=== PATIENT | female | born 1985 | race Caucasian/White ===

== ENCOUNTER 2016-04-07 09:27 | Emergency (ER) | payer OTHER ==
[~2016-04-07] VITALS: Wt 126.0 kg
[~2016-04-07 09:27] MED LIST: AMO500 PO; CLIN-73 PO; ERYTOPOI RIGHT EYE; HYDR-3498 PO; HYDR-906 PO; IBUP-1542 PO; IBUP400T22 PO; IBUP800T25 PO; NO MEDS
[2016-04-07] MEDS ORDERED: KETOROLAC 30 MG INJ IM STA (10:34)
[2016-04-07] MEDS ORDERED: IBUP-1542 PO (10:55)
--- NOTE | 2016-04-07 13:16 | ERD ---
ER Documentation Chief Complaint Date/Time DATE: 04/07/16 TIME: 13:12 Chief Complaint LOW BACK PAIN RADIATING R LEG PAIN FOR 4 DAYS. NO TRAUMA . HPI The patient is a 30-year-old morbidly obese female with chronic low back pain for 4-5 years, with several acute flareups per year. She comes today complaining of an acute flareup of her usual low back pain, for the last 3 days. She denies fever, chills, nausea, vomiting, diarrhea. She denies any recent injury, accident, trauma, or fall. She denies any original injury that precipitated her low back pain to begin with. She has been seen and managed for chronic low back pain on an outpatient basis. She states that she received an MRI one year ago which was "normal". She states that she occasionally has some pain shooting down her left leg. She denies saddle paresthesia, bladder or bowel dysfunction, or limb numbness or weakness. She took some ibuprofen yesterday with some relief. She states that she tried physical therapy in 2013 without relief. She has used heat at home with some relief. ROS All systems reviewed and are negative except as per history of present illness. Medications Home Meds Active Scripts Ibuprofen* (Motrin*) 600 Mg Tab, 600 MG PO Q8, #30 TAB Prov:NICK LOVE, DIRECTOR EMPLOYEE [employer] HE[employer] 04/07/16 Erythromycin* (Erythromycin* Ophthalmic) 1 Applic Oint, 1 APPLIC RIGHT EYE QID for 7 Days Prov:ALEX HIDALGO PA-C 01/06/16 Clindamycin Hcl* (Clindamycin Hcl*) 300 Mg Capsule, 450 MG PO TID for 10 Days, CAP Prov:ALEX HIDALGO PA-C 01/06/16 Ibuprofen* (Motrin*) 800 Mg Tab, 800 MG PO Q6, #30 TAB Prov:ALEX HIDALGO PA-C 01/06/16 Hydrocodone/Acetaminophen ([place] 5-325 Tablet) 1 Each Tablet, 1 TAB PO Q6H Y for PAIN, #10 TAB Prov:ALEX HIDALGO PA-C 01/06/16 Ibuprofen* (Motrin*) 600 Mg Tab, 600 MG PO Q6H Y for PAIN AND OR ELEVATED TEMP, #30 TAB Prov:RUEL WEST 06/29/15 Hydrocodone Bit-Acetaminophen* ([place]*) 5-325 Mg Tab, 1 TAB PO Q6 Y for PAIN, # 7 TAB Prov:RUEL WEST 06/29/15 Ibuprofen* (Motrin*) 400 Mg Tab, 400 MG PO Q6, #20 TAB Prov:BRAYDEN GARCIA 09/17/14 Amoxicillin* (Amoxicillin*) 500 Mg Cap, 500 MG PO TID for 7 Days, CAP Prov:EMIGDIOKayleighLEONARDABRAYDEN 09/17/14 Reported Medications [No Meds] No Conflict Check 01/15/13 Allergies Allergies: Coded Allergies: No Known Allergy (Verified , 01/15/13) PMhx/Soc History of Surgery: Yes () Anesthesia Reaction: No Hx Neurological Disorder: No Hx Respiratory Disorders: No Hx Cardiac Disorders: No Hx Psychiatric Problems: No Hx Miscellaneous Medical Probl: Yes (gallbladder removed) Hx Alcohol Use: No Hx Substance Use: No Hx Tobacco Use: No Physical Exam Vitals Vital Signs Date Time Temp Pulse Resp B/P Pulse Ox O2 Delivery O2 Flow Rate FiO2 04/07/16 09:29 98.5 92 21 137/84 99 Physical Exam INITIAL VITAL SIGNS: Reviewed by me, afebrile, no tachycardia GENERAL: Alert. Well developed and well nourished. No respiratory distress. Nontoxic in appearance. No acute distress. HEAD: Head is normocephalic. Atraumatic. EYES: EOMI. No scleral icterus. No conjunctival injection. ENT: External ears, nose, and mouth normal. Nasal passages patent. Moist mucous membranes. NECK: Supple. Full range of motion. Trachea midline. No bony or myofascial tenderness to palpation. No step-off. No external signs of trauma. RESPIRATORY: No tachypnea. Clear to auscultation bilaterally. No wheezing, rales , or rhonchi. CV: Regular rate and rhythm. No murmurs, rubs, or gallops ABDOMEN: Soft, rounded/obese, non-tender. No guarding. No rebound. No masses. Bowel sounds normal in all quadrants. BACK: No external signs of trauma. No redness or swelling. No CVA tenderness. No bony tenderness to palpation. No step-off. + Myofascial tenderness to palpation right side lower back paraspinal muscles. Negative straight leg raise. Range of motion limited secondary to pain in flexion, lateral bending, and rotation. Range of motion normal in extension and nonpainful. EXTREMITIES: Sensation intact to light touch bilateral lower extremities. Strength 5/5 bilateral lower extremities. Full range of motion bilateral lower extremities. No obvious deformity. No clubbing or cyanosis. No edema. SKIN: Warm and dry. No diaphoresis. No obvious rashes or lesions. NEUROLOGIC: Alert and oriented x 3. Appropriate. Face is symmetric. Speech is normal. Moves all extremities equally. Gait is slow and guarded, however patient ambulates easily and without a limp. Results 24 hrs Current Medications Medications (Trade) Dose Ordered Sig/Ilsa Route PRN Reason Start Time Stop Time Status Last Admin Dose Admin Ketorolac Tromethamine (Toradol) 30 mg ONCE STAT IM 04/07/16 10:34 04/07/16 10:39 DC 04/07/16 10:42 Procedures/MDM Nursing Notes Reviewed Previous Medical Records requested via [facility]. EMERGENCY DEPARTMENT COURSE / MEDICAL DECISION MAKING: The patient comes to the ED secondary to acute on chronic low back pain for the last several years. This acute flare-up has lasted 3 days. Differential diagnosis upon initial evaluation includes but is not limited to: Fracture, dislocation, cauda equina, epidural abscess, cord compression, musculoskeletal pain, discogenic pain, and others. The patient was treated with Toradol 30 mg IM with moderate relief. The patient' s repeat physical exam was benign. She was ambulatory with a slow, but steady gait without a limp. She denied any previous or recent injury, accident, trauma , or fall. She denied any fever, chills, or flulike symptoms. He denied saddle paresthesia, change in bladder or bowel function or habits, or lower extremity numbness or weakness. As such, I have low suspicion at this time for fracture, dislocation, cauda equina, epidural abscess, cord compression, discogenic pain, or any other serious cause of the patient's acute on chronic low back pain. Final impression: Acute exacerbation of chronic low back pain Based on patient's history of present illness and physical examination the decision was made to discharge. The patient was re-evaluated after ED treatment and stabilizing measures, and symptoms have improved. There is no evidence of life threatening injuries or illnesses at this time. On re-examination, patient resting in no distress, stable vital signs, reports feeling better and safe for discharge with outpatient follow up with PMD in 2-3 days. Patient given return precautions. She verbalized understanding and agreed to return precautions. She will return here immediately for any new or worsening symptoms. I instructed her on the importance of weight loss, gentle and regular physical activity, and physical therapy for amelioration of low back pain. The patient verbalized understanding and agreed. All of her questions and concerns were addressed prior to discharge. She agrees to follow- up with her primary care provider as directed. Patient's blood pressure was elevated but appears stable without evidence of hypertensive emergency, end organ damage, chest pain or shortness of breath. The patient was counseled about the risks of untreated hypertension and urged to pursue outpatient monitoring and therapy in 2-3 days with their primary care physician. Prescription Ibuprofen Departure Diagnosis: Primary Impression: Acute exacerbation of chronic low back pain Condition: Stable Patient Instructions: Self-Care for Low Back Pain Additional Instructions: Call your primary care doctor TOMORROW for an appointment during the next 2-3 days.See the doctor sooner or return here if your condition worsens before your appointment time. NICK LOVE NP Apr 07, 2016 13:16
== END 2016-04-07 11:13 | disposition home or self-care (01) ==
LOC: FTE 09:27
DX: M54.5 Low back pain (principal)
CPT/HCPCS: 96372; J1885; Z7502

== ENCOUNTER 2017-06-13 13:29 | Emergency (ER) | END 2017-06-13 15:05 | disposition home or self-care (01) ==

== ENCOUNTER 2017-08-08 19:24 | Emergency (ER) | END 2017-08-08 23:08 | disposition home or self-care (01) ==

== ENCOUNTER 2018-02-11 16:18 | Emergency (ER) | payer OTHER ==
[~2018-02-11] VITALS: Ht 167.6 cm; Wt 129.6 kg
[~2018-02-11 16:18] MED LIST changes: -AMO500 PO; +AMOX500C2 PO; -CLIN-73 PO; +CLIN300C10 PO; +HYDR-4011 PO; -HYDR-906 PO; +IBUP-1561 PO; -IBUP400T22 PO; -IBUP800T25 PO; +IBUP800T48 PO
[2018-02-11 16:21] VITALS: Ht 167.6 cm; Wt 129.6 kg
[2018-02-11] MEDS ORDERED: HYDROCODONE/APAP (5/325) TAB PO ONE (19:00)
[2018-02-11] MEDS ORDERED: IBUP800T48 PO (19:48)
--- NOTE | 2018-02-11 19:53 | ERD ---
ER Documentation Chief Complaint Chief Complaint Complains of right ankle pain since this HPI 32-year-old female presents with right foot and ankle pain after she twisted it while coming down the stairs today. She tripped on a banana peel. No head injury or KO. No other injury or pain. She try to take anti-inflammatory at home but it did not help. No numbness or tingling. ROS All systems reviewed and are negative except as per history of present illness. Medications Home Meds Active Scripts Ibuprofen* (Motrin*) 800 Mg Tab, 800 MG PO Q6, #30 TAB Prov:LYLE HUSTON PA-C 02/11/18 Ibuprofen* (Motrin*) 600 Mg Tab, 600 MG PO Q6, #30 TAB Prov:HERRERA ASTUDILLO 08/08/17 Ibuprofen* (Motrin*) 600 Mg Tab, 600 MG PO Q8, #30 TAB Prov:NICK LOVE, IN[employer]CTION BRA[employer]ER 04/07/16 Erythromycin* (Erythromycin* Ophthalmic) 1 Applic Oint, 1 APPLIC RIGHT EYE QID for 7 Days Prov:ALEX HIDALGO PA-C 01/06/16 Clindamycin Hcl* (Clindamycin Hcl*) 300 Mg Capsule, 450 MG PO TID for 10 Days, CAP Prov:ALEX HIDALGO PA-C 01/06/16 Ibuprofen* (Motrin*) 800 Mg Tab, 800 MG PO Q6, #30 TAB Prov:ALEX HIDALGO PA-C 01/06/16 Hydrocodone/Acetaminophen ([place] 5-325 Tablet) 1 Each Tablet, 1 TAB PO Q6H PRN for PAIN, #10 TAB Prov:ALEX HIDALGO PA-C 01/06/16 Ibuprofen* (Motrin*) 600 Mg Tab, 600 MG PO Q6H PRN for PAIN AND OR ELEVATED TEMP, #30 TAB Prov:RUEL WEST 06/29/15 Hydrocodone Bit-Acetaminophen* ([place]*) 5-325 Mg Tab, 1 TAB PO Q6 PRN for PAIN, #7 TAB Prov:RUEL WEST 06/29/15 Ibuprofen* (Motrin*) 400 Mg Tab, 400 MG PO Q6, #20 TAB Prov:BRAYDEN GARCIA 09/17/14 Amoxicillin* (Amoxicillin*) 500 Mg Cap, 500 MG PO TID for 7 Days, CAP Prov:BRAYDEN GARCIA 09/17/14 Reported Medications [No Meds] No Conflict Check 01/15/13 Allergies Allergies: Coded Allergies: oxcarbazepine (Verified Allergy, Unknown, 02/11/18) PMhx/Soc History of Surgery: Yes () Anesthesia Reaction: No Hx Neurological Disorder: No Hx Respiratory Disorders: No Hx Cardiac Disorders: Yes (HTN) Hx Psychiatric Problems: No Hx Miscellaneous Medical Probl: Yes (gallbladder removed/ mood swings) Hx Alcohol Use: No Hx Substance Use: No Hx Tobacco Use: No Smoking Status: Never smoker FmHx Family History: No diabetes Physical Exam Vitals Vital Signs Date Temp Pulse Resp B/P (MAP) Pulse Ox O2 O2 Flow FiO2 Time Delivery Rate 02/11/18 100.0 100 20 140/91 98 16:21 (107) Physical Exam Const: No acute distress Head: Atraumatic Eyes: Normal Conjunctiva ENT: Normal External Ears, Nose and Mouth. Neck: Full range of motion. No meningismus. Resp: Clear to auscultation bilaterally Cardio: Regular rate and rhythm, no murmurs Lower Extremity -right Skin: No laceration Compartments: Soft Motor: Full active range of motion hip/knee/ankle/foot Sensation: Intact to light touch FDWS/MF/LF/P surfaces. Bones: Mild tenderness over lateral malleoli, no bony abnormalities Joints: Mild bimalleolar edema Pulses/Perfusion: 2+ DP, Capillary refill < 2 seconds Results 24 hrs Current Medications Medications Dose Sig/Ilsa Start Time Status Last (Trade) Ordered Route PRN Stop Time Admin Dose Reason Admin 1 tab ONCE ONCE 02/11/18 DC 02/11/18 Acetaminophen PO 19:00 19:08 / 02/11/18 Hydrocodone 19:02 Bitart ([place] (5/325)) Procedures/MDM Patient has foot and ankle pain after trauma. She is neurovascular intact. X- rays are negative. Adams wrap and crutches applied. Prescription for Motrin given. Patient counseled regarding my diagnostic impression and care plan. Prior to discharge all questions answered. Pt agrees with treatment plan and understands strict return precautions. Pt is [facility] within 24-48 hours. Precautionary instructions provided including instructions to return to the ER if not improving or for any worsening or changing symptoms or concerns. Departure Diagnosis: Primary Impression: Foot sprain Additional Impression: Ankle sprain Condition: Stable Patient Instructions: Self-Care for Strains and Sprains Additional Instructions: Call your primary care doctor TOMORROW for an appointment during the next 1-2 days.See the doctor sooner or return here if your condition worsens before your appointment time. LYLE HUSTON PA-C Feb 11, 2018 19:53
[2018-02-11 19:56] VITALS: BP 163/79; PULSE 72; RESP 18
== END 2018-02-11 19:55 | disposition home or self-care (01) ==
LOC: FTE 16:18
DX: S93.401A Sprain of unspecified ligament of right ankle, initial encounter (principal); I10 Essential (primary) hypertension; S93.601A Unspecified sprain of right foot, initial encounter; X58.XXXA Exposure to other specified factors, initial encounter; Y92.9 Unspecified place or not applicable
CPT/HCPCS: 73610; 73630; Z7502; Z7610

== ENCOUNTER 2018-07-18 18:58 | Emergency (ER) | payer OTHER ==
[~2018-07-18] VITALS: Ht 157.5 cm; Wt 127.9 kg
[2018-07-18 19:00] VITALS: Ht 157.5 cm; Wt 127.9 kg
[2018-07-18] MEDS ORDERED: ALBUTEROL 0.083% (NEB) 2.5 MG/3 ML AMP NEB STA (19:20)
[2018-07-18] MEDS ORDERED: IPRATROPIUM (NEB) 0.5 MG/2.5 ML AMP NEB STA (19:20)
[2018-07-18] MEDS ORDERED: DEXAMETHASONE 4 MG/ML 1 ML INJ PO ONE (19:30)
[2018-07-18] MEDS ORDERED: ACETAMINOPHEN 500 MG TAB PO STA (19:32)
--- NOTE | 2018-07-18 19:32 | ERD ---
ER Documentation Chief Complaint Chief Complaint COUGH, SOB, SINUS CONGESTION X'S 2 DAYS HPI 33-year-old female presents complaining of cough shortness of breath sinus congestion for the past 2 days. She did see primary care doctor who placed her on Augmentin which she has been taking but has not gotten any better. Also has fever. No nausea vomiting diarrhea. ROS All systems reviewed and are negative except as per history of present illness. Medications Home Meds Active Scripts Azithromycin* (Zithromax*) 250 Mg Tablet, 250 MG PO .NellPACK DIRECTED, #6 TAB TAKE 500 MG (2 TABS) THE FIRST DAY THEN 250 MG (1 TAB) DAYS 2-5 Prov:LYLE HUSTON PA-C 07/18/18 Ibuprofen* (Motrin*) 800 Mg Tab, 800 MG PO Q6, #30 TAB Prov:LYLE HUSTON PA-C 02/11/18 Ibuprofen* (Motrin*) 600 Mg Tab, 600 MG PO Q6, #30 TAB Prov:HERRERA ASTUDILLO 08/08/17 Ibuprofen* (Motrin*) 600 Mg Tab, 600 MG PO Q8, #30 TAB Prov:NICK LOVE, GAMING MANAGER 04/07/16 Erythromycin* (Erythromycin* Ophthalmic) 1 Applic Oint, 1 APPLIC RIGHT EYE QID for 7 Days Prov:ALEX HIDALGO PA-C 01/06/16 Clindamycin Hcl* (Clindamycin Hcl*) 300 Mg Capsule, 450 MG PO TID for 10 Days, CAP Prov:ALEX HIDALGO PA-C 01/06/16 Ibuprofen* (Motrin*) 800 Mg Tab, 800 MG PO Q6, #30 TAB Prov:ALEX HIDALGO PA-C 01/06/16 Hydrocodone/Acetaminophen ([place] 5-325 Tablet) 1 Each Tablet, 1 TAB PO Q6H PRN for PAIN, #10 TAB Prov:ALEX HIDALGO PA-C 01/06/16 Ibuprofen* (Motrin*) 600 Mg Tab, 600 MG PO Q6H PRN for PAIN AND OR ELEVATED TEMP, #30 TAB Prov:RUEL WEST 06/29/15 Hydrocodone Bit-Acetaminophen* ([place]*) 5-325 Mg Tab, 1 TAB PO Q6 PRN for PAIN, #7 TAB Prov:RUEL WEST 06/29/15 Ibuprofen* (Motrin*) 400 Mg Tab, 400 MG PO Q6, #20 TAB Prov:BRAYDEN GARCIA 09/17/14 Amoxicillin* (Amoxicillin*) 500 Mg Cap, 500 MG PO TID for 7 Days, CAP Prov:BRAYDEN GARCIA 09/17/14 Reported Medications [No Meds] No Conflict Check 01/15/13 Allergies Allergies: Coded Allergies: oxcarbazepine (Verified Allergy, Unknown, 07/18/18) PMhx/Soc History of Surgery: Yes () Anesthesia Reaction: No Hx Neurological Disorder: No Hx Respiratory Disorders: No Hx Cardiac Disorders: Yes (HTN) Hx Psychiatric Problems: No Hx Miscellaneous Medical Probl: Yes (gallbladder removed/ mood swings) Hx Alcohol Use: No Hx Substance Use: No Hx Tobacco Use: No Smoking Status: Never smoker FmHx Family History: No diabetes Physical Exam Vitals Vital Signs Date Temp Pulse Resp B/P (MAP) Pulse Ox O2 O2 Flow FiO2 Time Delivery Rate 07/18/18 97.7 94 17 132/86 96 Room Air 20:00 (101) 07/18/18 100.7 19:38 07/18/18 101 22 97 21 19:34 07/18/18 100.7 103 20 118/56 97 19:00 (76) Physical Exam INITIAL VITAL SIGNS: Reviewed by me GENERAL: Awake, alert and oriented x 4, well appearing, nontoxic, speaking in full sentences. No acute distress HEAD: Atraumatic NECK: Supple. No masses. Full range of motion. No meningismus. No midline tenderness. THROAT: No tonilar erythema or edema. No exudates. Uvula midline. No kissing tonsils. RESPIRATORY: Clear to auscultation bilaterally. Symmetric chest wall rise. No wheezing or rales. No accessory muscle use. CV: Regular rate and rhythm. No murmurs, rubs, or gallops. ABDOMEN: Soft, non-distended. Nontender. Negative [place]. Negative [place] point tenderness. No CVA tenderness bilaterally. No guarding. No rebound. Results 24 hrs Current Medications Medications Dose Sig/Ilsa Start Time Status Last (Trade) Ordered Route PRN Stop Time Admin Dose Reason Admin 10 mg ONCE ONCE 07/18/18 DC 07/18/18 Dexamethasone PO 19:30 6/2/19 19:29 (Decadron) 19:31 Albuterol 5 mg ONCE STAT 07/18/18 DC 07/18/18 (Proventil NEB 19:20 07/18/18 19:34 0.083% (Neb)) 19:22 Ipratropium 0.5 mg ONCE STAT 07/18/18 DC 07/18/18 [place] NEB 19:20 07/18/18 19:34 (Atrovent 19:22 0.02% (Neb)) 1,000 mg ONCE STAT 07/18/18 DC 07/18/18 Acetaminophen PO 19:32 07/18/18 19:38 (Tylenol 19:33 Tab) Procedures/MDM Patient here with cough congestion and shortness of breath. She does have a low-grade temperature. She was given Tylenol. She was given Decadron and a breathing treatment. Chest x-ray ordered. Chest x-ray negative. Patient felt much better after the treatment. I told her to discontinue Augmentin and give her a prescription for Z-Cem instead. Patient counseled regarding my diagnostic impression and care plan. Prior to discharge all questions answered. Pt agrees with treatment plan and understands strict return precautions. Pt is instructed to follow up with primary care provider within 24-48 hours. Precautionary instructions provided including instructions to return to the ER if not improving or for any worsening or changing symptoms or concerns. Departure Diagnosis: Primary Impression: Bronchitis Condition: Stable LYLE HUSTON PA-C Jul 18, 2018 19:32
[2018-07-18] MEDS ORDERED: AZIT250T PO (20:41)
[2018-07-18 20:58] VITALS: BP 117/81; PULSE 83; RESP 18
== END 2018-07-18 20:59 | disposition home or self-care (01) ==
LOC: FTE 18:58
DX: J40 Bronchitis, not specified as acute or chronic (principal); I10 Essential (primary) hypertension
CPT/HCPCS: 71045; 94664; J1100; Z7610